=== PATIENT | female | born 1995 ===

== ENCOUNTER 2017-02-16 08:09 | Emergency (ER) | payer SELFPAY ==
[2017-02-16 08:44] LABS: % IMMATURE GRANULYOCYTES 0.2 % (0.0-1.1); ABSOLUTE IMMATURE GRANULOCYTES 0.01 10^3/uL (0.00-0.10); ADD DIFF? NO; ADD MORPH? NO; ADD SCAN? NO; ATYPICAL LYMPHOCYTE FLAG 20 (0-99); FRAGMENT RBC FLAG 0 (0-99); HEMATOCRIT 40.2 % (38.0-47.0); HEMOGLOBIN 14.6 g/dL (12.6-16.3); LEFT SHIFT FLG 0 (0-99); LIPEMIA HEMOLYSIS FLAG 90 (0-99); MEAN CELL HEMOGLOBIN 32.1 pg (27.9-34.1); MEAN CELL HEMOGLOBIN CONCENTR. 36.3 g/dL (32.4-36.7); MEAN CELL VOLUME 88.4 fL (81.5-99.8); MEAN PLATELET VOLUME 10.6 fL (8.7-11.7); PLATELET CLUMPS FLAG 0 (0-99); PLATELET COUNT 202 10^3/uL (150-400); RED BLOOD CELL COUNT 4.55 10^6/uL (4.18-5.33); RED CELL DISTRIBUTION WIDTH 11.9 % (11.5-15.2)
[2017-02-16 09:08] LABS: ANION GAP 20 mEq/L (8-16); CALCIUM 9.8 mg/dL (8.5-10.4); CARBON DIOXIDE 15 mEq/l (22-31); CHLORIDE 110 mEq/L (97-110); CREATININE 0.7 mg/dL (0.6-1.0); GLOMERULAR FILTRATION RATE > 60; GLUCOSE 91 mg/dL (70-100); POTASSIUM 3.9 mEq/L (3.5-5.2); SODIUM 145 mEq/L (134-144)
--- NOTE | 2017-02-16 09:15 | EDPHY ---
H & P Stated Complaint: Seizure 02/15/17 and today. Has HX of seizures Time Seen by Provider: 02/16/17 08:21 HPI/ROS: CHIEF COMPLAINT: Increasing seizures over past 2 days HISTORY OF PRESENT ILLNESS: The patient presents to the ED after she has had 2 seizures in the past 2 days. The patient reportedly has had a history of epilepsy since the age of 2. The patient reportedly has had some recent modifications to her seizure medications which include Lamictal and Dilantin. The patient did sustain a tongue bite after her seizure today. The patient denies fall or significant trauma. She has typical complaints of myalgias which she experiences following her seizure. REVIEW OF SYSTEMS: A comprehensive 10 point review of systems is otherwise negative aside from elements mentioned in the history of present illness. Source: Patient Exam Limitations: No limitations - Personal History LMP (Females 10-55): Now Current Tetanus Diphtheria and Acellular Pertussis (TDAP): Yes - Medical/Surgical History Hx Asthma: No Hx Chronic Respiratory Disease: No Hx Diabetes: No Hx Cardiac Disease: No Hx Renal Disease: No Hx Cirrhosis: No Hx Alcoholism: No Hx HIV/AIDS: No Hx Splenectomy or Spleen Trauma: No Other PMH: seizure disorder - Social History Smoking Status: Never smoked - Physical Exam Exam: General Appearance: Alert, no distress Head: Atraumatic Eyes: Pupils equal, round, reactive ENT, Mouth: Mild abrasion noted to lateral aspect of tongue, no suturable laceration Neck: Nontender, trachea midline Respiratory: No chest wall tender, subcutaneous air, lungs clear bilaterally Cardiovascular: Regular rate and rhythm Abdomen: Abdomen is soft and nontender, pelvis stable Skin: No lacerations, No abrasion Back: No midline T/L/S pain Extremities: Nontender, full range of motion Neurological: A&Ox3, normal motor function, normal sensory exam Constitutional: Initial Vital Signs Temperature (C) 37.3 C 02/16/17 08:10 Heart Rate 129 H 02/16/17 08:10 Respiratory Rate 22 H 02/16/17 08:10 Blood Pressure 128/89 H 02/16/17 08:10 O2 Sat (%) 91 L 02/16/17 08:10 O2 Delivery Mode Room Air Allergies/Adverse Reactions: No Known Allergies Allergy (Unverified 12/15/09 21:22) Home Medications: Medication Instructions Recorded Tegretol 08/22/15 Medical Decision Making ED Course/Re-evaluation: The patient presents to the ED after a witnessed seizure. She had no recurrent seizure activity in the emergency department. The patient did have a decreased CO2 consistent with her recent seizure. The patient had her Lamictal dose increased several months ago after a flurry of seizures. In that time she has had ongoing seizures. Over the past 2 days she has had 2 seizures. The patient has no evidence of status epilepticus at this point time. The patient has been unable to see a neurologist secondary to her insurance status. Patient's Dilantin level is checked and found to be normal. I re-evaluated the patient at 11:20 a.m.. She is in no acute distress, her mentation is normal, GCS 15 and neurologic examination is normal. Our home health care case manager has set the patient up with an appointment to see our neurologist. Differential Diagnosis: Differential diagnosis considered includes seizure, status epilepticus, metabolic abnormality, dehydration - Data Points Laboratory Results: Laboratory Results 02/16/17 08:35 02/16/17 08:35 02/16/17 02/16/17 02/16/17 08:35 08:35 08:35 WBC RBC Hgb Hct MCV MCH MCHC RDW Plt Count MPV Neut % (Auto) Lymph % (Auto) Ripley % (Auto) Eos % (Auto) Baso % (Auto) Nucleat RBC Rel Count Absolute Neuts (auto) Absolute Lymphs (auto) Absolute Monos (auto) Absolute Eos (auto) Absolute Basos (auto) Absolute Nucleated RBC Immature Gran % Immature Gran # Sodium 145 mEq/L H mEq/L (134-144) Potassium 3.9 mEq/L mEq/L (3.5-5.2) Chloride 110 mEq/L mEq/L (97-110) Carbon Dioxide 15 mEq/l L mEq/l (22-31) Anion Gap 20 mEq/L H mEq/L (8-16) BUN 9 mg/dL mg/dL (7-23) Creatinine 0.7 mg/dL mg/dL (0.6-1.0) Estimated GFR > 60 Glucose 91 mg/dL mg/dL (70-100) Calcium 9.8 mg/dL mg/dL (8.5-10.4) Beta HCG, Qual NEGATIVE Phenytoin 12.3 mcg/mL mcg/mL (10.0-20.0) 02/16/17 08:35 WBC 4.86 10^3/uL 10^3/uL (3.80-9.50) RBC 4.55 10^6/uL 10^6/uL (4.18-5.33) Hgb 14.6 g/dL g/dL (12.6-16.3) Hct 40.2 % % (38.0-47.0) MCV 88.4 fL fL (81.5-99.8) MCH 32.1 pg pg (27.9-34.1) MCHC 36.3 g/dL g/dL (32.4-36.7) RDW 11.9 % % (11.5-15.2) Plt Count 202 10^3/uL 10^3/uL (150-400) MPV 10.6 fL fL (8.7-11.7) Neut % (Auto) 51.4 % % (39.3-74.2) Lymph % (Auto) 38.1 % % (15.0-45.0) Ripley % (Auto) 9.7 % % (4.5-13.0) Eos % (Auto) 0.2 % L % (0.6-7.6) Baso % (Auto) 0.4 % % (0.3-1.7) Nucleat RBC Rel Count 0.0 % % (0.0-0.2) Absolute Neuts (auto) 2.50 10^3/uL 10^3/uL (1.70-6.50) Absolute Lymphs (auto) 1.85 10^3/uL 10^3/uL (1.00-3.00) Absolute Monos (auto) 0.47 10^3/uL 10^3/uL (0.30-0.80) Absolute Eos (auto) 0.01 10^3/uL L 10^3/uL (0.03-0.40) Absolute Basos (auto) 0.02 10^3/uL 10^3/uL (0.02-0.10) Absolute Nucleated RBC 0.00 10^3/uL 10^3/uL (0-0.01) Immature Gran % 0.2 % % (0.0-1.1) Immature Gran # 0.01 10^3/uL 10^3/uL (0.00-0.10) Sodium Potassium Chloride Carbon Dioxide Anion Gap BUN Creatinine Estimated GFR Glucose Calcium Beta HCG, Qual Phenytoin Departure - Departure Disposition: Home, Routine, Self-Care Clinical Impression: Epilepsy Condition: Good Instructions: Epilepsy (ED) Additional Instructions: You have an appointment with Dr. Vega, today, February 16, at 2:45. He is located at [address] [place] [address], [address]. 1. Please return to the ED for recurrent seizure, severe headache, numbness, weakness or other concerns. 2. Please follow up with our neurologist, Dr. Palomo Vega as scheduled above. Referrals: Palomo Vega MD [Medical Doctor] - As per Instructions
[2017-02-16 12:20] VITALS: BP 125/67; PULSE 87; RESP 18; TEMP 98.2; O2SAT 95
== END 2017-02-16 12:20 | disposition home or self-care (01) ==
DX: G40.909 Epilepsy, unspecified, not intractable, without status epilepticus (principal)